=== PATIENT | female | born 1990 | race Caucasian/White ===

== ENCOUNTER 2023-12-21 20:35 | Emergency (ER) | payer MEDICAID, OTHER ==
[~2023-12-21] VITALS: Ht 170.2 cm; Wt 68.6 kg
[2023-12-21 20:39] VITALS: BP 115/77; PULSE 112; RESP 14; TEMP 98.2; O2SAT 99
== END 2023-12-21 23:14 | disposition left against medical advice (07) ==
LOC: ER 20:37
DX: R51.9 Headache, unspecified (principal); Z53.21 Procedure and treatment not carried out due to patient leaving prior to being seen by health care provider

== ENCOUNTER 2024-12-26 08:51 | Emergency (ER) | payer MEDICAID ==
[~2024-12-26] VITALS: Ht 167.6 cm; Wt 71.1 kg
[2024-12-26 08:52] VITALS: BP 115/75; PULSE 112; RESP 16; TEMP 98; O2SAT 97
[2024-12-26 09:35] LABS: LEUKOCYTE ESTERASE ,URINE SMALL (Neg); NITRITES, URINE NEGATIVE (Neg); OCCULT BLOOD,URINE TRACE-INTACT (Neg); URINE HCG NEGATIVE (NEG)
[2024-12-26 09:41] LABS: UA COLLECTION TYPE CLN CATCH MIDSTREAM
[2024-12-26 09:42] LABS: MUCUS STRANDS FEW /LPF (Neg); SQUAMOUS EPITHELIAL CELL,UR MODERATE /LPF (FEW)
[2024-12-26 09:54] LABS: URINE AMPHETAMINE SCREEN POSITIVE (Neg); URINE BARBITUATE SCREEN NEGATIVE (Neg); URINE BENZODIAZEPINES SCREEN NEGATIVE (Neg); URINE CANNABINOID SCREEN NEGATIVE (Neg); URINE COCAINE SCREEN NEGATIVE (Neg); URINE METHADONE SCREEN NEGATIVE (Neg); URINE OPIATE SCREEN NEGATIVE (Neg); URINE PHENCYCLIDINE SCREEN NEGATIVE (Neg)
--- NOTE | 2024-12-26 10:39 | Physician Documentation ---
History of Present Illness ~ General Chief Complaint: Multiple Medical Complaints Stated Complaint: SORE THROAT AND STD CHECK Time Seen by MD: 10:02 OK to notify your PCP?: Yes Source: patient Mode of Arrival: POV Exam Limitations: no limitations History of Present Illness Initial Comments Patient presents with a two day history of sore throat as well as bumps in the vagina for the past two days. Reports they are painful. Denies fevers or chills. No other rashes. States has had multiple STIs in the past including gonorrhea, chlamydia and Trichomonas. New sexual contact. Requesting STI screening/treatment. Medication Reconciliation Allergies: Coded Allergies: sulfamethoxazole (Unverified Allergy, Unknown, 12/26/24) trimethoprim (Unverified Allergy, Unknown, 12/26/24) Scheduled Doxycycline Monohydrate (Doxycycline Monohydrate), 1 CAP PO Q12H Past Medical History Other Past Medical History: Patient states multiple STIs in the past including gonorrhea, chlamydia and Trichomonas. Past Surgical History: no surgical history Smoking Status: Current every day smoker Alcohol Use: None Drug Use: methamphetamine Lives In: Home Review of Systems ROS Complains of painful bumps to her vagina. Complains of sore throat. No fevers, chills. Was asked, but otherwise denies review of systems. Physical Exam Physical Exam Vital Signs: RN Vital Signs have been reviewed: Yes, Temperature: 98.0, Source: Temporal, Heart Rate: 112, Respiratory Rate: 16, BP: 115/75, Pulse Oximetry: 97, Weight: 71.100 Oxygen Flow Rate: 0 Pulse Oximetry Reflects: adequate oxygenation Physical Exam General: Awake, alert, oriented. No apparent distress Throat: Oropharynx is within normal limits. Tonsils are not enlarged. No lymphadenopathy on palpation. Respiratory: Lungs are clear to auscultation bilaterally. No respiratory distress. Chest: Normal shape and size. No accessory muscle use. Cardiovascular: Regular rate and rhythm. S1-S2. No murmur, gallop, rub. Vaginal exam: There are multiple bumps to the skin around the inner thighs and around the mons and labia majora. Consistent with shaving rash. She is on her menses and has a tampon in place. No other signs of infection. Extremities: No lower extremity edema, cyanosis or clubbing. Neurologic: Alert and oriented x4. Nonfocal Psychiatric: Normal mood and affect. Skin: Normal color. Warm and dry. Progress Results/Orders Results/Orders Orders - BRANDON GALINDO WELDER GAS Chlam/Gc Amp Ur (12/26/24 10:20) RPR (12/26/24 10:44) Completed Orders - BRANDON GALINDO NP Ceftriaxone Im Kit W/Lidocaine (Rocephin (12/26/24 10:20) Azithromycin Tablet (Zithromax Tablet) (12/26/24 10:20) Syphilis Screen Poc (12/26/24 10:20) Ceftriaxone 500 Im W/Lidocaine (Rocephin (12/26/24 10:30) Hcg Serum Ql (12/26/24 10:44) Medications Received in ER Medications (Trade) Dose Ordered Sig/Jose Miguel Route PRN Reason Start Time Stop Time Status Last Admin Dose Admin (Zithromax tablet) 1,000 mg ONCE ONCE PO 12/26/24 10:20 12/26/24 10:24 DC 12/26/24 10:49 1,000 MG (Rocephin 500MG IM kit (w/1% LIDOcaine)) 500 mg ONCE ONCE IM 12/26/24 10:30 12/26/24 10:31 DC 12/26/24 10:49 500 MG Vital Signs 12/26/24 08:52 Temp 98.0 Pulse 112 Resp 16 B/P (MAP) 115/75 Pulse Ox 97 O2 Flow Rate 0 Laboratory Tests Test 12/26/24 09:20 12/26/24 10:44 Urine Specimen Description Cln catch midstream Urine Color Yellow Urine Clarity Clear Urine pH 6.0 Urine Specific [place] 1.020 Urine Protein Negative Urine Glucose (UA) Negative Urine Ketones Negative Urine Occult Blood Trace-intact Urine Nitrite Negative Urine Bilirubin Negative Urine Urobilinogen 0.2 Urine Leukocyte Esterase Small H Urine RBC 0-2 Urine WBC 20-30 H Urine Squamous Epithelial Cells Moderate Urine Bacteria Few Urine Mucus Few Urine Culture Indicated Indicated Volume Urine Centrifuged 10 ml Urine HCG, Qualitative Negative Urine Comment Urine Opiates Screen Negative Urine Methadone Screen Negative Urine Fentanyl Screen Negative Urine Barbiturates Screen Negative Urine Phencyclidine Screen Negative Urine Amphetamines Screen Positive Urine Benzodiazepines Screen Negative Urine Cocaine Screen Negative Urine Cannabinoids Screen Negative Drug Screen Comment Human Chorionic Gonadotropin, Qual Negative Syphilis Serology Positive *A Microbiology Date/Time Source Procedure Growth Status 12/26/24 09:42 Urine Clean Catch Midstream Urine Culture - Preliminary Culture received. Resulted Medical Decision Making Findings Patient is a 34-year-old female with past medical history significant for multi STI exposures in the past. Risk factors include use of methamphetamine. She states new rash and sore throat and new sexual partner with concern for new STI. She will be treated for gonorrhea and chlamydia. We will test for syphilis and treat where appropriate. Patient's rapid syphilis screening was pending. They left prior to receiving the results. We will call if syphilis screening is positive. Patient left without receiving discharge paperwork. Departure Time of Disposition: 11:49 Disposition: 01 HOME / SELF CARE / HOMELESS Impression: Primary Impression: Contact with and (suspected) exposure to infections with a predominantly sexual mode of transmission Additional Impressions: Sore throat Rash Condition: Stable Discharge Instructions: Preventing Sexually Transmitted Infections, Adult Additional Instructions: You have been treated for gonorrhea and chlamydia today. Your test for syphilis is also being completed. Recommend that you follow up with primary care or a [facility]. Recommend preventing STIs with use of condoms. The rash appears to be a rash from shaving. There does not appear to be in infection/STI at this time. Recommend that you monitor and return for new or worsening symptoms. Referrals: NO PRIMARY CARE PROVIDER (PCP) Education Educated: Patient Educated regarding: diagnosis, treatment, need for follow up Signature Scribe Signature: No scribe Attestation: This note was created with the assistance of voice recognition software whereby errors in grammar, syntax, and/or spelling may have occurred despite active proofreading efforts by the author. Please do not hesitate to contact the provider for clarification or for questions regarding the content of this document. BRANDNO GALINDO NP Dec 26, 2024 10:39
[2024-12-26] MEDS: CefTRIAXone 500MG IM Kit w/LIDOcaine IM ONE (10:49)
[2024-12-26] MEDS: CefTRIAXone 1000mg IM Kit (w/lidocaine diluent) IM ONE (10:50)
[2024-12-26 11:56] LABS: SYPHILIS SCREENING TEST POC POSITIVE (Negative)
[2024-12-26 12:15] LABS: HCG SERUM QL NEGATIVE
[2024-12-26] MEDS ORDERED: DOXY-460 PO (13:23)
== END 2024-12-26 11:50 | disposition home or self-care (01) ==
LOC: ER 08:52
DX: J02.9 Acute pharyngitis, unspecified (principal); R21 Rash and other nonspecific skin eruption; R06.02 Shortness of breath; F17.200 Nicotine dependence, unspecified, uncomplicated; Z79.899 Other long term (current) drug therapy
CPT/HCPCS: 36415; 80305; 81001; 81025; 84703; 86592; 87077; 87088; 87186; 87491; 87591; 96372; 99283; J0696

== ENCOUNTER 2024-12-26 12:44 | Emergency (ER) | payer MEDICAID ==
[~2024-12-26] VITALS: Ht 167.6 cm; Wt 68.2 kg
[2024-12-26 12:45] VITALS: TEMP 98
[2024-12-26] MEDS ORDERED: DOXY-460 PO (13:23)
--- NOTE | 2024-12-26 13:23 | Physician Documentation ---
HPI ~ General Chief Complaint: Medication Request Stated Complaint: MED REQUEST Time Seen by MD: 13:14 Source: patient Mode of Arrival: POV Exam Limitations: no limitations History of Present Illness HPI Comments Was here earlier today for STI screening. She left prior to her syphilis test being resulted. A came back positive and she was called back for treatment. Medication Reconciliation Allergies: Coded Allergies: sulfamethoxazole (Unverified Allergy, Unknown, 12/26/24) trimethoprim (Unverified Allergy, Unknown, 12/26/24) Scheduled Doxycycline Monohydrate (Doxycycline Monohydrate), 1 CAP PO Q12H Past Medical History Past Surgical History: no surgical history Alcohol Use: None Drug Use: methamphetamine Lives In: Home Review of Systems ROS As stated above in the HPI, otherwise all systems are reviewed and negative. Physical Exam Physical Exam Vital Signs: RN Vital Signs have been reviewed: Yes, Temperature: 98.0, Source: Temporal, Weight: 68.180 Pulse Oximetry Reflects: adequate oxygenation Physical Exam General: Awake, alert, oriented. No apparent distress Respiratory: Lungs are clear to auscultation bilaterally. No respiratory distress. Chest: Normal shape and size. No accessory muscle use. Cardiovascular: Regular rate and rhythm. S1-S2. No murmur, gallop, rub. Neurologic: Alert and oriented x4. Nonfocal Psychiatric: Normal mood and affect. Skin: Normal color. Warm and dry. Progress Results/Orders Results/Orders Vital Signs 12/26/24 12:45 Temp 98.0 Medical Decision Making Findings Patient presented for STI treatment and management. She was given ceftriaxone in his Zithromax. She left prior to receiving her syphilis results. She called back after they were positive. Unfortunately, the hospital is unable to provide penicillin G due to national shortages. She was therefore given prescription for doxycycline. Encouraged to complete all antibiotics. Reviewed safe sex practices. She verbalizes understanding. Departure Time of Disposition: 13:22 Disposition: 01 HOME / SELF CARE / HOMELESS Impression: Primary Impression: Syphilis Condition: Stable Referrals: NO PRIMARY CARE PROVIDER (PCP) Prescriptions Doxycycline Monohydrate (Doxycycline Monohydrate) 100 Mg Capsule 1 CAP PO Q12H for 14 Days, #28 CAP Prov: BRANDON GALINDO VALVE SETTER 12/26/24 Education Educated: Patient Educated regarding: diagnosis, treatment, need for follow up Signature Scribe Signature: No scribe Attestation: This note was created with the assistance of voice recognition software whereby errors in grammar, syntax, and/or spelling may have occurred despite active proofreading efforts by the author. Please do not hesitate to contact the pr ovidfernando for clarification or for questions regarding the content of this document. BRANDON GALINDO NP Dec 26, 2024 13:23
== END 2024-12-26 14:30 | disposition home or self-care (01) ==
LOC: ER 12:45
DX: A53.9 Syphilis, unspecified (principal); Z88.1 Allergy status to other antibiotic agents; Z88.2 Allergy status to sulfonamides
CPT/HCPCS: 99283

== ENCOUNTER 2025-01-05 21:05 | Emergency (ER) | payer MEDICAID ==
[~2025-01-05 21:05] MED LIST: DOXY-460 PO
== END 2025-01-05 23:04 | disposition left against medical advice (07) ==
LOC: ER 21:07
DX: Z76.0 Encounter for issue of repeat prescription (principal); Z53.21 Procedure and treatment not carried out due to patient leaving prior to being seen by health care provider; Z88.2 Allergy status to sulfonamides; Z88.8 Allergy status to other drugs, medicaments and biological substances

== ENCOUNTER 2025-01-17 14:22 | Emergency (ER) | payer MEDICAID ==
[~2025-01-17] VITALS: Ht 167.6 cm; Wt 79.5 kg
[2025-01-17 14:46] VITALS: BP 121/85; PULSE 114; RESP 18; TEMP 98.3; O2SAT 100
--- NOTE | 2025-01-17 15:53 | Physician Documentation ---
HPI ~ General Chief Complaint: Medication Request Stated Complaint: MEDICATION REACTION Time Seen by MD: 15:30 Medication Reconciliation Allergies: Coded Allergies: sulfamethoxazole (Unverified Allergy, Unknown, 01/17/25) trimethoprim (Unverified Allergy, Unknown, 01/17/25) Discontinued Medications Doxycycline Monohydrate (Doxycycline Monohydrate), 1 CAP PO Q12H Discontinued Reason: Auto Discontinued Past Medical History Past Surgical History: no surgical history Alcohol Use: None Drug Use: methamphetamine Lives In: Home Physical Exam Physical Exam Vital Signs: Temperature: 98.3, Source: Oral, Heart Rate: 114, Respiratory Rate: 18, BP: 121/85, Pulse Oximetry: 100, Weight: 79.550 Progress Results/Orders Results/Orders Vital Signs 01/17/25 14:46 Temp 98.3 Pulse 114 Resp 18 B/P (MAP) 121/85 Pulse Ox 100 Departure Referrals: NO PRIMARY CARE PROVIDER (PCP) Additional Comment Medical Screen Exam 34 y/o here for medication for possible syphillus and vaginal yeast infection. Patient appears in NAD, conversational, stable. a/p: 1. possible STI exposure, stable to wait for room The note accurately reflects work and decisions made by me.Nena FUNK 01/17/25 15:53 NENA POSEY Jan 17, 2025 15:53
== END 2025-01-17 16:00 | disposition left against medical advice (07) ==
LOC: ER 14:22
DX: A53.9 Syphilis, unspecified (principal); Z88.1 Allergy status to other antibiotic agents; Z88.2 Allergy status to sulfonamides
CPT/HCPCS: 99282

== ENCOUNTER 2025-03-13 18:15 | Emergency (ER) | payer MEDICAID ==
[~2025-03-13] VITALS: Ht 170.2 cm; Wt 72.7 kg
--- NOTE | 2025-03-13 18:59 | Physician Documentation ---
History of Present Illness General Chief Complaint: See Chief Complaint Stated Complaint: MED REQUEST/NECK PAIN Time Seen by MD: 18:45 History of Present Illness Initial Comments This is a 34-year-old female who presents for evaluation of several days of epigastric abdominal pain, mild to moderate in its intensity, crampy, gets better when she eats or drinks warm food/fluids. Did not attempt to treat it. No particular aggravating factors. Denies nausea or vomiting. She also reports that several months ago she has been diagnosed with syphilis, prescribed doxycycline, and unfortunately lost medication did not complete the course. She is worried that she might still have active syphilis. She did receive prophylaxis for gonorrhea and chlamydia at the time. Denies any vaginal bleeding or discharge. Denies any concerns for tobacco, alcohol or illicit substances use Medication Reconciliation Allergies: Coded Allergies: sulfamethoxazole (Unverified Allergy, Unknown, 01/17/25) trimethoprim (Unverified Allergy, Unknown, 01/17/25) Past Medical History Past Surgical History: no surgical history Alcohol Use: None Drug Use: methamphetamine Lives In: Home Review of Systems ROS 10 point review of systems was performed and unless noted above in HPI is negative for acute process/complaint. Physical Exam Physical Exam Vital Signs: Temperature: 97.6, Source: Temporal, Heart Rate: 106, Respiratory Rate: 18, BP: 117/70, Pulse Oximetry: 100, Weight: 72.720 Oxygen Flow Rate: 0 Physical Exam GENERAL: Awake, alert, oriented, GCS 15, no apparent distress, non-toxic appearing, answers questions, follows commands appropriately. HEENT: Atraumatic, normocephalic, pupils equal, extraocular muscles intact, sclerae anicteric, mucus membranes moist, oropharynx is clear, no stridor. NECK: supple, full active range of motion, trachea midline, no thyromegaly, no lymphadenopathy, no JVD. CARDIOVASCULAR: regular rate/rhythm, no murmurs/gallops/rubs, Pulses are 2+ in all extremities and symmetric. Capillary refill less than 2 seconds. PULMONARY: Nonlabored, good air movement ,no respiratory distress, speaking in full sentences, clear to auscultation bilaterally, no wheezing, no ronchi, no rales, no accessory muscle use. GASTROINTESTINAL: Soft, epigastric tenderness to palpation without guarding or rebound, non-distended, normal active bowel sounds, no organomegaly, no pulsatile masses, no CVA tenderness. NEUROLOGIC: Lucid with normal mental status. Normal facial symmetry. Moves all extremities symmetrically and with purpose. No truncal ataxia. Speech is fluid without evidence of dysarthria or aphasia, no focal deficits appreciated. MUSCULOSKELETAL: There is full range of motion of all extremities. There is no joint pain or joint swelling or joint erythema. There is no muscle pain or tenderness or swelling. EXTREMITIES: warm, well-perfused, no cyanosis, no clubbing, no edema, no acute deformities. Skin: warm, dry, no rashes or lesions, no jaundice, no petechiae orpurpura. No ecchymosis. PSYCHIATRIC: Normal affect, normal insight, normal concentration. Focused exam: [] Progress Results/Orders Results/Orders Orders - DAVIE WELCH DO RPR (03/13/25 18:45) Hiv 1 And 2 Qualitative Rna (03/13/25 18:45) Chlam/Gc Amp Ur (03/13/25 18:45) Completed Orders - DAVIE WELCH DO Cbc/Diff (03/13/25 18:45) Lipase (03/13/25 18:45) MG (03/13/25 18:45) Hcg Serum Ql (03/13/25 18:45) Hs Troponin I W Calculations (03/13/25 18:45) CMP (03/13/25 18:45) Drug Screen, Urine (03/13/25 18:45) Pantoprazole Tablet (Protonix) (03/13/25 18:45) Mag & Alum Hydrox/Simeth Susp (Maalox Or (03/13/25 18:45) Dicyclomine Capsule (Bentyl Capsule) (03/13/25 18:45) Lidocaine 2% Viscous (Xylocaine 2% Visco (03/13/25 18:45) Ondansetron Disint. Tablet (Zofran Odt T (03/13/25 18:45) Ua W/Microscopic, Cult If Ind (03/13/25 18:33) Medications Received in ER Medications (Trade) Dose Ordered Sig/Jose Miguel Route PRN Reason Start Time Stop Time Status Last Admin Dose Admin (Protonix) 40 mg ONCE ONCE PO 03/13/25 18:45 10/25/25 18:50 DC 03/13/25 19:21 40 MG (Maalox oral suspension) 30 ml ONCE ONCE PO 03/13/25 18:45 03/13/25 18:50 DC 03/13/25 19:20 30 ML (Bentyl capsule) 20 mg ONCE ONCE PO 03/13/25 18:45 03/13/25 18:50 DC 03/13/25 19:21 20 MG (Xylocaine 2% Viscous 15mL cup) 20 ml ONCE ONCE MM 03/13/25 18:45 03/13/25 18:50 DC 03/13/25 19:20 20 ML (Zofran ODT tablet) 4 mg ONCE STAT PO 03/13/25 18:45 03/13/25 18:50 DC 03/13/25 19:21 4 MG Vital Signs 03/13/25 18:21 Temp 97.6 Pulse 106 Resp 18 B/P (MAP) 117/70 Pulse Ox 100 O2 Flow Rate 0 Laboratory Tests Test 03/13/25 18:33 03/13/25 19:05 Urine Specimen Description Voided Urine Color Yellow Urine Clarity Cloudy Urine pH 6.0 Urine Specific [place] >=1.030 Urine Protein Trace Urine Glucose (UA) Negative Urine Ketones Negative Urine Occult Blood Trace-intact Urine Nitrite Positive H Urine Bilirubin Negative Urine Urobilinogen 0.2 Urine Leukocyte Esterase Moderate H Urine RBC 0-2 Urine WBC Tntc H Urine Squamous Epithelial Cells Many Urine Bacteria 4+ Urine Culture Indicated Rejected for culture Volume Urine Centrifuged 10 ml Urine Comment Urine Opiates Screen Negative Urine Methadone Screen Negative Urine Fentanyl Screen Negative Urine Barbiturates Screen Negative Urine Phencyclidine Screen Negative Urine Amphetamines Screen Positive Urine Benzodiazepines Screen Negative Urine Cocaine Screen Negative Urine Cannabinoids Screen Negative Drug Screen Comment White Blood Count 9.1 Red Blood Count 5.14 Hemoglobin 14.1 Hematocrit 43.0 Mean Corpuscular Volume 83.7 Mean Corpuscular Hemoglobin 27.4 Mean Corpuscular Hemoglobin Concent 32.7 L Red Cell Distribution Width 14.3 Platelet Count 360 Mean Platelet Volume 7.9 Neutrophils (%) (Auto) 68.2 Lymphocytes (%) (Auto) 20.2 L Monocytes (%) (Auto) 7.5 Eosinophils (%) (Auto) 3.1 Basophils (%) (Auto) 1.0 Neutrophils # (Auto) 6.2 Lymphocytes # (Auto) 1.8 Monocytes # (Auto) 0.7 Eosinophils # (Auto) 0.3 Basophils # (Auto) 0.1 CBC Comment Sodium Level 137 Potassium Level 4.0 Chloride Level 106 Carbon Dioxide Level 24.5 Anion Gap 7 L Blood Urea Nitrogen 11 Creatinine 0.77 Estimated GFR/1.73 m2 86 BUN/Creatinine Ratio 14.3 Glucose Level 88 Calcium Level 8.4 L Magnesium Level 2.2 Total Bilirubin 0.3 Aspartate Amino Transf (AST/SGOT) 18 Alanine Aminotransferase (ALT/SGPT) 34 Alkaline Phosphatase 90 Troponin I High Sensitivity < 4 L Troponin I High Sens Percent Delta Troponin I Hi Sens Absolute Change Total Protein 7.2 Albumin 3.5 Globulin 3.7 Albumin/Globulin Ratio 0.9 L Lipase 34 Human Chorionic Gonadotropin, Qual Negative Chemistry Comments Medical Decision Making Additional information obtaine: old records, family Findings Facility Status: ED Holds, [facility] The plan was discussed with the patient, who demonstrates clear understanding of the plan and is in agreement with the plan unless otherwise noted in the chart. All questions have been answered, all concerns were addressed unless otherwise documented. I was available throughout their ED stay for frequent reassessment and questions. Differential Diagnoses (considered and possible or likely): [Differential diagnosis considered includes acute appendicitis, acute cholecystitis, pancreatitis, gastritis, PUD, diverticulitis, mesenteric ischemia, abdominal aortic aneurysm, bowel obstruction, enteritis, colitis, fecal impaction, volvulus, IBS, inflammatory bowel disease, specific food intolerance, peritonitis, perforated viscous, malignancy, UTI, abscess, and abdominal pain NOS. Pelvic source of pain was also considered including endometritis, dysmenorr hea, ovarian cyst, ovarian torsion, PID, TOA, cervicitis, vaginitis, or uterine fibroid. History, physical exam, and workup exclude many of the more serious causes listed above. With a respect to her syphilis treatment, I feel it the patient has been non compliant, we will retest RPR and differential includes but not limited to cured syphilis versus partially treat it syphilis, versus progression to secondary/tertiary syphilis but less likely.] ??Differential Diagnoses (considered and unlikely, not requiring evaluation currently): [No evidence of abdominal trauma] MDM Data Please see HPI for the following: Independent Historians and external Records Review. Historian: [Patient] Independent Historians: ?[Record review, patient's mom] Medication Management: [Reviewed medication list] Social History and determinants: [Reviewed] Please see the body of the note for the following: Any independent interpretations of ECG, imaging studies. All vitals signs/haemodynamics, ordered tests were independently reviewed and interpreted by myself. Nursing triage complaint and vitals reviewed, additional nursing notes were reviewed as available and I agree unless otherwise noted or documented in contradiction in the chart Vital Signs: Independently reviewed Labs: Independently interpreted Imaging: Independently interpreted Old Medical Records: Independently reviewed, see HPI for relevant summary and information Pulse Oximetry: [99%] interpreted as [normal on room air] by me Additionally notably showing: [Hemodynamics reviewed. The patient isn't febrile, slightly tachycardic which has a improved with rest alone. No evidence of hypotension respiratory distress. Laboratory studies shows normal CBC without leukocytosis or hemoglobin. Metabolic panel is unremarkable. Normal renal function, normal electrolytes. Troponins negative. Lipase is normal. HCG is negative, she is not . UA is fulminant with the positive for UTI. Unfortunately, toxicology is positive for methamphetamines. The HAV, RPR, gonorrhea and chlamydia are pending at this time.] Tests considered but not ordered include: [Imaging has been considerably does not appear to be necessary LP to evaluate for tertiary syphilis has been considerably but does not appear to be necessary either, can be done on an outpatient basis] Social Determinants of Health Impact: Patient was evaluated in [facility] [place] to healthcare due to below par ratio of patient to medical providers. [] Comorbid Conditions Impacting Present Evaluation and Care/Treatment: [Methamphetamine abuse, history of syphilis] Management Discussions with other Healthcare Providers: [Infectious disease, re commends doxycycline] Treatment and Disposition Medication Management (Given or considered): [Penicillin G has been considerably does not available at this facility]. See EMR for details Consideration for Hospitalization/Escalation/Deescalation of Care: Admission for observation has been considered, [however the patient is able to tolerate p.o., their symptoms are controlled, they are able to rely on oral medications, and their chief complaint/diagnosis can be managed on outpatient basis.] ?ED Course:?[No clinical deterioration] ?Shared decision making:?[Patient is hemodynamically stable for discharge home with follow with their primary care provider. [ ] Specific and cautious return precautions provided and discussed with full understanding. Any incidental findings were also discussed and follow up recommendations given. [] All questions answered. Patient/family were able to verbalize back return precautions. Patient/family agree to plan. Copies of imaging and laboratory studies were provided.] Code status:?FULL Please see the full Electronic Medical Record for full details of nursing documentation, medications list, other records of complete past medical history and conditions, vital signs, laboratory studies, and any radiologic study interpretations by radiologists. Portions of this note were completed using [employer] dictation software and as a result there may exist minor errors in spelling. I have reviewed elements of past family and social history and agree as included in note. Differential Diagnosis See body of the main note Departure Disposition: HOME / SELF CARE / HOMELESS Impression: Primary Impression: Epigastric abdominal pain Additional Impressions: Urinary tract infection Syphilis Condition: Stable (Still seems) Discharge Instructions: Abdominal Pain, Adult, Syphilis, Urinary Tract Infection, Adult Additional Instructions: Today you were evaluated for epigastric abdominal pain. There was no clear explanation for your pain, most likely it is related to gastritis, which is the inflammation of the lining of the stomach. You will be prescribed medication to treat that. If the pain continues you will need a follow-up with the Gastroenterology to do an EGD procedure to directly visualize your stomach. Additionally, you were diagnosed with a urinary tract infection. Antibiotics were prescribed. Please complete the course of antibiotics, did not stop early even if all of your symptoms have resolved. Your syphilis is positive, how ever the titers to determine whether or not the previous treatment was successful we will take several days. If with the treatment was not successful, you will receive a call back from [facility] Department. Nonetheless it is recommended that you undergo a 2nd round of treatment with the antibiotics that is specifically targets syphilis, in addition to antibiotics for urinary tract infection. Do not stop taking these antibiotics early. Referrals: NO PRIMARY CARE PROVIDER (PCP) Prescriptions Amox Tr/Potassium Clavulanate (Augmentin 875-125 Tablet) 1 Each Tablet 1 TAB PO Q12H for 10 Days, #20 TAB Prov: DAVIE WELCH DO 03/13/25 Doxycycline Monohydrate (Doxycycline Monohydrate) 100 Mg Capsule 1 CAP PO Q12H for 14 Days, #28 CAP Prov: DAVIE WELCH DO 03/13/25 Education Educated: Patient Educated regarding: diagnosis, treatment, prognosis, need for follow up Signature Scribe Signature: No scribe Attestation: Date: Mar 13, 2025 Time: 19:01 This note accurately reflects clinical decisions, work performed by myself, Davie Welch, DAVIE SORTO DO Mar 13, 2025 18:58
[2025-03-13 19:04] LABS: LEUKOCYTE ESTERASE ,URINE MODERATE (Neg); NITRITES, URINE POSITIVE (Neg); OCCULT BLOOD,URINE TRACE-INTACT (Neg)
[2025-03-13 19:10] LABS: UA COLLECTION TYPE VOIDED
[2025-03-13 19:13] LABS: SQUAMOUS EPITHELIAL CELL,UR MANY /LPF (FEW)
[2025-03-13] MEDS: LIDOcaine 2% Viscous 15ml cup MM ONE (19:20)
[2025-03-13] MEDS: mag hydrox/Alum hydrox/simeth 30ml oral suspension PO ONE (19:20)
[2025-03-13] MEDS: pantoprazole 40mg Tablet.DR PO ONE (19:21)
[2025-03-13] MEDS: ondansetron 4mg rapidly disintigrating tab PO STA (19:21)
[2025-03-13 19:25] LABS: MEAN PLATELET VOLUME 7.9 FL (7.4-10.4); RED CELL DISTRIBUTION WIDTH 14.3 % (11.5-14.5)
[2025-03-13 19:25] LABS: URINE AMPHETAMINE SCREEN POSITIVE (Neg); URINE BARBITUATE SCREEN NEGATIVE (Neg); URINE BENZODIAZEPINES SCREEN NEGATIVE (Neg); URINE CANNABINOID SCREEN NEGATIVE (Neg); URINE COCAINE SCREEN NEGATIVE (Neg); URINE METHADONE SCREEN NEGATIVE (Neg); URINE OPIATE SCREEN NEGATIVE (Neg); URINE PHENCYCLIDINE SCREEN NEGATIVE (Neg)
[2025-03-13 19:34] LABS: CREATININE 0.77 MG/DL (0.40-0.90); TOTAL CARBON DIOXIDE 24.5 MMOL/L (24-32); eCRCL 100 ML/MIN; eGFR 86 ML/MIN
[2025-03-13 19:45] LABS: HCG SERUM QL NEGATIVE
[2025-03-13] MEDS ORDERED: AMOX-117 PO (20:14)
[2025-03-13] MEDS ORDERED: DOXY-460 PO (20:14)
[2025-03-13] MEDS ORDERED: MAG-54 PO (20:21)
[2025-03-13] MEDS ORDERED: DICY20TA17 PO (20:21)
[2025-03-13] MEDS ORDERED: PANT-47 PO (20:21)
[2025-03-13 20:34] VITALS: BP 118/72; PULSE 99; RESP 18; TEMP 98.6; O2SAT 99
[2025-03-16 11:17] LABS: RPR 1:4 titer (NonRea<1:1)
== END 2025-03-13 20:35 | disposition home or self-care (01) ==
LOC: ER 18:15
DX: N39.0 Urinary tract infection, site not specified (principal); A53.9 Syphilis, unspecified; R10.13 Epigastric pain; F15.90 Other stimulant use, unspecified, uncomplicated; Z88.2 Allergy status to sulfonamides; Z88.8 Allergy status to other drugs, medicaments and biological substances
CPT/HCPCS: 36415; 80053; 80305; 81001; 83690; 83735; 84484; 84703; 85025; 86592; 87491; 87535; 87538; 99284

== ENCOUNTER 2025-04-27 02:42 | Emergency (ER) | payer MEDICAID ==
[~2025-04-27] VITALS: Ht 170.2 cm; Wt 68.9 kg
[~2025-04-27 02:42] MED LIST changes: +DICY20TA17 PO; -DOXY-460 PO; +MAG-54 PO; +PANT-47 PO
[2025-04-27 03:28] VITALS: BP 124/89; PULSE 96; RESP 12; O2SAT 98
--- NOTE | 2025-04-27 03:39 | Physician Documentation ---
History of Present Illness ~ Chief Complaint: Vaginal pain Stated Complaint: VAGINAL COMPLICATION Time Seen by MD: 03:36 Mode of Arrival: POV HPI Patient presents to the emergency room with chief complaint of lost tampon. She states she thinks she may have loss it inside her vagina for the past week and a half. She reports that she was having intercourse and felt significant discomfort in his having discharge therefore she reached up and pulled out what she describes as a discussing tampon. No fevers. She is currently on antibiotics being treated for syphilis. She states she has been followed by infectious disease for syphilis. Last Menstrual Period: Apr 16, 2025 Medication Reconciliation Allergies: Coded Allergies: sulfamethoxazole (Unverified Allergy, Unknown, 04/27/25) trimethoprim (Unverified Allergy, Unknown, 04/27/25) Scheduled Dicyclomine HCl (Dicyclomine HCl), 1 TAB PO Q8H Mag Hydrox/Al Hydrox/Simeth (Maalox Advanced Max-Str Susp), 20 ML PO Q6H Pantoprazole Sodium (PROTONIX tablet), 1 TAB PO DAILY Past Medical History Past Surgical History: no surgical history Last Menstrual Period: Apr 16, 2025 Alcohol Use: None Drug Use: methamphetamine Lives In: Home Review of Systems ROS All review of systems negative except as per HPI Physical Exam Vital Signs: Temperature: 98.3, Source: Oral, Heart Rate: 96, Respiratory Rate: 12, BP: 124/89, Pulse Oximetry: 98, Weight: 68.860 Physical Exam General: Patient is awake, alert, oriented x4 in no acute distress and well appearing.~ Head: Normocephalic and atraumatic. Eyes: Conjunctival normal. EOMI. PERRL. ENT: Mucous membranes moist. Neck: Supple, trachea is midline. Chest: Clear to auscultation bilaterally without rales, rhonchi, or wheezes. There is no accessory muscle use or retractions. Cardiac: RRR without murmurs, gallops, or rubs. Abd: Soft, nondistended, nontender, with normoactive bowel sounds. No guarding, rebound, or rigidity. : Normal female external anatomy, no discharge, no odors, negative chandelier, speculum exam negative for foreign body Progress Results/Orders Results/Orders Vital Signs 12/9/25 12/9/25 12/9/25 02:46 03:28 03:28 Temp 98.3 98.3 Pulse 111 96 Resp 17 12 12 B/P (MAP) 126/87 124/89 (101) Pulse Ox 98 98 Medical Decision Making Additional information obtaine: old records Findings Patient presents to the emergency room with vaginal complaint as per HPI. Differentials include but are not limited to vaginal foreign body, PID, yeast infection, delusional disorder. Physical exam is reassuring and he had not feel emergent labs or imaging is necessary. She is already on antibiotics for reported syphilis. Urinary Diff Dx:Considerations: Include: AAA, , Aortic dissection, Appendicitis, Bowel obstruction, Cholelithiasis, Choleangitis, DJD, Ectopic , Hepatitis, HNP, Impaction, Intrauterine , Musculoskeletal pain, Ovarian torsion, Pancreatitis, PID, Post-Op complication, Pyelonephritis, Renal failure, Strain, Urinary Obstruction, Urolithiasis, Urinary retention, UTI, Vaginitis, Other Genital Diff Dx:Considerations: Include: -Complete, - Incomplete, -Inevitable, Ablortion-Missed, -Threatened, Abruptio placentae, Bartholin abscess, Bartholin cyst, Blood loss anemia, Constipation, C ervicitis, Dsymenorrhea, Ectopic , Foreign body, Hormonal, Hidradenitis suppurativa, Intrauterine , Menorrhagia, Menometrorrhagia, Menstrual bleeding, Myomatous uterus, Perianal abscess, Physiologic discharge, Pinworms, PID, Placenta previa, , Precipitous Hct, Trauma, UTI, Vaginitis(osis)- Atrophic, Vaginitis, Vaginitis(osis)-Bacterial, Vaginitis(osis)-Candidal, Vaginitis(osis)-Contact, Vaginitis(osis)-Herpes, Vaginitis(osis)-Trich., Other Departure Disposition: HOME / SELF CARE / HOMELESS Impression: Primary Impression: Adult general medical exam Condition: Stable Discharge Instructions: General Discharge Instructions Referrals: NO PRIMARY CARE PROVIDER (PCP) Signature Scribe Signature: No scribe Attestation: The note accurately reflects work and decisions made by me.Sp Eckert MD 04/27/25 04:02 SP ECKERT MD Apr 27, 2025 03:39
[2025-04-27 04:31] VITALS: TEMP 98.3
== END 2025-04-27 04:33 | disposition home or self-care (01) ==
LOC: ER 02:42
DX: Z00.00 Encounter for general adult medical examination without abnormal findings (principal); F15.90 Other stimulant use, unspecified, uncomplicated; Z88.2 Allergy status to sulfonamides; Z88.8 Allergy status to other drugs, medicaments and biological substances; Z79.899 Other long term (current) drug therapy
CPT/HCPCS: 99284

== ENCOUNTER 2025-05-17 00:16 | Emergency (ER) | payer MEDICAID ==
[~2025-05-17] VITALS: Ht 167.6 cm; Wt 70.8 kg
[2025-05-17 00:37] VITALS: BP 131/82; PULSE 117; RESP 16; TEMP 98.5; O2SAT 99
== END 2025-05-17 04:41 | disposition left against medical advice (07) ==
LOC: ER 00:17
DX: R51.9 Headache, unspecified (principal); H53.8 Other visual disturbances; Z88.2 Allergy status to sulfonamides; Z88.8 Allergy status to other drugs, medicaments and biological substances; Z53.21 Procedure and treatment not carried out due to patient leaving prior to being seen by health care provider
CPT/HCPCS: 99281